=== PATIENT | female | born 1965 | race American Indian/Alaskan Native ===

== ENCOUNTER 2017-04-19 12:21 | Outpatient (CLI) | payer OTHER ==
--- NOTE | 2017-04-19 15:55 | XRay Report ---
XRAY LUMBAR SPINE THREE VIEWS: 04/19/17 12:21:00 CLINICAL: Low back pain. FINDINGS: Lower thoracic upper lumbar dextroscoliosis. Exaggerated lumbar lordosis. Normal vertebral body height, alignment and disc spaces. No fracture. Multilevel lumbar facet joint sclerosis, worse at the lower levels of L4-5 and L5-S1. Normal soft tissues. IMPRESSION: Scoliosis and lower lumbar facet joint arthropathy.
== END 2017-04-19 12:22 | disposition home or self-care (01) ==
LOC: SPVIMAG 12:21
PROVIDERS: ATTEND Internal Medicine Hematology & Oncology
DX: M41.86 Other forms of scoliosis, lumbar region (principal); M12.88 Other specific arthropathies, not elsewhere classified, other specified site; C50.412 Malignant neoplasm of upper-outer quadrant of left female breast
CPT/HCPCS: 72100

== ENCOUNTER 2017-05-31 08:53 | Outpatient (CLI) | payer OTHER ==
--- NOTE | 2017-05-31 14:39 | PET Report ---
PET SB TO MT subsequent: HISTORY: Restaging of breast cancer. TECHNIQUE: 13.0 millicuries F-18 FDG was administered intravenously. Noncontrast CT images and PET images were obtained from the skull base to the proximal thighs. Fused images were reviewed on a workstation. The patient's blood glucose level measured 122. COMPARISON: 09/12/12. FINDINGS: BRAIN: physiologic FDG uptake in the imaged brain. NECK: physiologic FDG uptake. CHEST WALL: Bilateral breast prostheses are intact. No recurrent breast mass or chest wall mass. MEDIASTINUM: physiologic FDG uptake. LUNGS: physiologic FDG uptake. PLEURA/PERICARDIUM: physiologic FDG uptake. THORACIC LYMPH NODES: physiologic FDG uptake. HEPATOBILIARY: physiologic FDG uptake. Mean liver SUV measures 4.5. PANCREAS: physiologic FDG uptake. SPLEEN: physiologic FDG uptake. ADRENAL GLANDS: physiologic FDG uptake. KIDNEYS/RENAL COLLECTING SYSTEMS: physiologic FDG uptake. BOWEL/MESENTERY: physiologic FDG uptake. PELVIC VISCERA: physiologic FDG uptake. ABDOMINAL/PELVIC LYMPH NODES: physiologic FDG uptake. MUSCULOSKELETAL: physiologic FDG uptake. IMPRESSION: Negative PET/CT. No evidence for disease recurrence or metastasis.
== END 2017-05-31 08:54 | disposition home or self-care (01) ==
LOC: PET 08:53
PROVIDERS: ATTEND Internal Medicine Hematology & Oncology
DX: C50.412 Malignant neoplasm of upper-outer quadrant of left female breast (principal); M54.89 Other dorsalgia; Z98.82 Breast implant status; Z79.899 Other long term (current) drug therapy; Z87.891 Personal history of nicotine dependence
CPT/HCPCS: 78815; 82962; A9552